=== PATIENT | male | born 2000 | race Two or more races ===

== ENCOUNTER 2024-07-27 03:53 | Emergency (ER) | payer SELFPAY ==
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
[2024-07-27 03:57] VITALS: BP 156/94; PULSE 82; RESP 18; TEMP 36.5; O2SAT 96
[2024-07-27 03:59] VITALS: BMI 31.9
== END 2024-07-27 04:10 ==
LOC: SERX 06:56
PROVIDERS: Emergency Provider Emergency Medicine
DX: Z02.89 Encounter for other administrative examinations (principal); Z04.1 Encounter for examination and observation following transport accident
CPT/HCPCS: 99281